=== PATIENT | male | born 1935 | race Caucasian/White ===

== ENCOUNTER 2021-01-25 11:25 | Inpatient (IN) ==
[2021-01-25 11:54] LABS: Basophils # 0.1 10*3/uL (0.0-0.2); Basophils % 0.8 % (0.0-0.8); Eosinophils # 0.1 10*3/uL (0.0-0.87); Eosinophils % 1.9 % (0.00-10.9); Hematocrit 44.6 VOL% (42.0-52.0); Immature Granulocytes % 0.3 %; Immature Granulocytes Absolute 0.02 #; Lymphocytes # 2.2 10*3/uL (1.4-4.0); Lymphocytes % 29.9 % (21.2-54.2); Mean Corpuscular HGB Conc 33.6 GM/DL (32-36); Mean Corpuscular Volume 90.3 FL (87-102); Mean Platelet Volume 10.8 FL (9.6-12.0); Monocytes % 7.6 % (1.7-12.7); Neutrophils % 59.5 % (38.7-73.9); Platelet Count 208 T/CUMM (130-400); Red Blood Count 4.94 MC/CUMM (3.8-5.5); Red Cell Distribution Width 12.9 % (9.3-17.3); White Blood Count 7.4 T/CUMM (4-12)
[2021-01-25] MEDS ORDERED: NITROGLYCERIN SL 0.4 MG TABLET SL PRN ×2 (12:01→16:05)
[2021-01-25] MEDS ORDERED: NITROGLYCERIN 2% OINT 1 INCH/GM PACK TOP STA (12:01)
[2021-01-25 12:30] LABS: Albumin 4.1 G/DL (3.4-5.0); Bilirubin,Total 1.2 MG/DL (0.2-1.0); Calcium 9.3 MG/DL (8.5-10.1); Osmolality,Calculated 279.4 MOS/KG (273-304); Potassium 4.5 MMOL/L (3.5-5.1); Total Protein 7.1 G/DL (6.4-8.2)
[2021-01-25] MEDS ORDERED: MAGNESIUM SULF RIDER 4 GM/100 ML PREMIX IV PRN (16:02)
[2021-01-25] MEDS ORDERED: MAGNESIUM SULF RIDER 2 GM/50 ML PREMIX IV PRN (16:02)
[2021-01-25] MEDS ORDERED: MORPHINE 4 MG/1 ML VIAL IV PRN (16:02)
[2021-01-25] MEDS ORDERED: ONDANSETRON 4 MG/2 ML VIAL IV PRN (16:02)
[2021-01-25] MEDS: SODIUM CHLORIDE 0.45% 1,000 ML IV SCH (17:30)
[2021-01-25] MEDS: ENOXAPARIN 40 MG/0.4 ML SYRINGE SUBCUT SCH (17:52)
[2021-01-25] MEDS: ROSUVASTATIN 10 MG TABLET PO SCH (21:59)
[2021-01-25] MEDS: MAGNESIUM OXIDE 400 MG TABLET PO SCH (22:00)
[2021-01-25] MEDS: metFORMIN 500 MG TABLET PO SCH (22:00)
[2021-01-25] MEDS: rOPINIRole 0.25 MG TABLET PO SCH (22:00)
[2021-01-25] MEDS: GABAPENTIN 100 MG CAPSULE PO SCH (22:00)
[2021-01-25] MEDS: TAMSULOSIN 0.4 MG CAPSULE PO SCH (22:00)
[2021-01-25] MEDS: BUDESONIDE/FORMOTEROL 80-4.5 INHALER 6.9 GM INH SCH (22:01)
[2021-01-25] MEDS: ACETAMINOPHEN 325 MG TABLET PO PRN (22:01)
[2021-01-26] MEDS: NITROGLYCERIN 2% OINT 1 INCH/GM PACK TOP SCH ×2 (06:04→09:47)
[2021-01-26] MEDS: ACETAMINOPHEN 325 MG TABLET PO PRN ×2 (06:31→15:46)
[2021-01-26] MEDS: SODIUM CHLORIDE 0.45% 1,000 ML IV SCH ×2 (06:31→15:37)
[2021-01-26] MEDS: BUDESONIDE/FORMOTEROL 80-4.5 INHALER 6.9 GM INH SCH ×2 (09:45→21:28)
[2021-01-26] MEDS: PRASUGREL 10 MG TABLET PO SCH (09:45)
[2021-01-26] MEDS: CALCIUM (CARBONATE)/VITAMIN D 600 MG-400 UNIT TABLET PO SCH (09:45)
[2021-01-26] MEDS: GABAPENTIN 100 MG CAPSULE PO SCH ×3 (09:46→21:28)
[2021-01-26] MEDS: ASCORBIC ACID 500 MG TABLET PO SCH (09:46)
[2021-01-26] MEDS: metFORMIN 500 MG TABLET PO SCH (09:46)
[2021-01-26] MEDS: rOPINIRole 0.25 MG TABLET PO SCH ×3 (09:46→21:28)
[2021-01-26] MEDS: MAGNESIUM OXIDE 400 MG TABLET PO SCH ×2 (09:46→21:28)
[2021-01-26] MEDS: LOSARTAN 25 MG TABLET PO SCH (09:46)
[2021-01-26] MEDS: PANTOPRAZOLE 40 MG TABLET PO SCH (09:46)
[2021-01-26] MEDS ORDERED: DEXTROSE 50% 25 GM/50 ML VIAL IV PRN (11:54)
[2021-01-26] MEDS ORDERED: GLUCAGON 1 MG VIAL IM PRN (11:54)
[2021-01-26] MEDS ORDERED: NITROGLYCERIN 2% OINT 1 INCH/GM PACK TOP SCH (12:00)
[2021-01-26] MEDS: ISOSORBIDE MONONITRATE 30 MG TABLET PO SCH (13:24)
[2021-01-26] MEDS: ASPIRIN EC 81 MG TABLET PO SCH (13:25)
[2021-01-26] MEDS: INSULIN REGULAR 100 UNIT/ML SUBCUT SCH ×4 (16:05→21:31)
[2021-01-26] MEDS: ENOXAPARIN 40 MG/0.4 ML SYRINGE SUBCUT SCH (17:01)
[2021-01-26] MEDS: TAMSULOSIN 0.4 MG CAPSULE PO SCH (21:28)
[2021-01-26] MEDS: ROSUVASTATIN 10 MG TABLET PO SCH (21:28)
[2021-01-27 06:25] LABS: Basophils # 0.1 10*3/uL (0.0-0.2); Basophils % 0.8 % (0.0-0.8); Eosinophils # 0.1 10*3/uL (0.0-0.87); Eosinophils % 1.9 % (0.00-10.9); Hematocrit 39.3 VOL% (42.0-52.0); Hemoglobin 12.6 GM/DL (14.0-18.0); Immature Granulocytes % 0.3 %; Immature Granulocytes Absolute 0.02 #; Lymphocytes # 1.6 10*3/uL (1.4-4.0); Lymphocytes % 25.2 % (21.2-54.2); Mean Corpuscular HGB Conc 32.1 GM/DL (32-36); Mean Corpuscular Volume 93.8 FL (87-102); Mean Platelet Volume 11.4 FL (9.6-12.0); Monocytes % 8.7 % (1.7-12.7); Neutrophils % 63.1 % (38.7-73.9); Platelet Count 147 T/CUMM (130-400); Red Blood Count 4.19 MC/CUMM (3.8-5.5); Red Cell Distribution Width 12.8 % (9.3-17.3); White Blood Count 6.2 T/CUMM (4-12)
[2021-01-27 06:47] LABS: Osmolality,Calculated 281.3 MOS/KG (273-304); Potassium 4.5 MMOL/L (3.5-5.1)
[2021-01-27] MEDS: INSULIN REGULAR 100 UNIT/ML SUBCUT SCH ×6 (07:39→15:40)
[2021-01-27] MEDS: BUDESONIDE/FORMOTEROL 80-4.5 INHALER 6.9 GM INH SCH ×2 (09:23→21:52)
[2021-01-27] MEDS: PANTOPRAZOLE 40 MG TABLET PO SCH (09:23)
[2021-01-27] MEDS: PRASUGREL 10 MG TABLET PO SCH (09:24)
[2021-01-27] MEDS: LOSARTAN 25 MG TABLET PO SCH (09:24)
[2021-01-27] MEDS: MAGNESIUM OXIDE 400 MG TABLET PO SCH ×2 (09:24→21:52)
[2021-01-27] MEDS: CALCIUM (CARBONATE)/VITAMIN D 600 MG-400 UNIT TABLET PO SCH (09:24)
[2021-01-27] MEDS: ASPIRIN EC 81 MG TABLET PO SCH (09:24)
[2021-01-27] MEDS: GABAPENTIN 100 MG CAPSULE PO SCH ×3 (09:24→21:52)
[2021-01-27] MEDS: ISOSORBIDE MONONITRATE 30 MG TABLET PO SCH (09:24)
[2021-01-27] MEDS: ASCORBIC ACID 500 MG TABLET PO SCH (09:24)
[2021-01-27] MEDS: rOPINIRole 0.25 MG TABLET PO SCH ×3 (09:25→21:52)
[2021-01-27] MEDS: ACETAMINOPHEN 325 MG TABLET PO PRN (12:21)
[2021-01-27] MEDS ORDERED: POTASSIUM CHLORIDE RIDER 10 MEQ in PREMIX 1 EACH IV PRN (15:47)
[2021-01-27] MEDS ORDERED: MAGNESIUM SULF RIDER 2 GM/50 ML PREMIX IV PRN (15:47)
[2021-01-27] MEDS: ENOXAPARIN 40 MG/0.4 ML SYRINGE SUBCUT SCH (17:10)
[2021-01-27] MEDS: TAMSULOSIN 0.4 MG CAPSULE PO SCH (21:52)
[2021-01-27] MEDS: ROSUVASTATIN 10 MG TABLET PO SCH (21:52)
[2021-01-28 05:15] LABS: Basophils % 0.7 % (0.0-0.8); Eosinophils # 0.1 10*3/uL (0.0-0.87); Eosinophils % 1.8 % (0.00-10.9); Hematocrit 38.1 VOL% (42.0-52.0); Hemoglobin 13.1 GM/DL (14.0-18.0); Immature Granulocytes % 0.3 %; Immature Granulocytes Absolute 0.02 #; Lymphocytes # 1.7 10*3/uL (1.4-4.0); Lymphocytes % 27.4 % (21.2-54.2); Mean Corpuscular HGB Conc 34.4 GM/DL (32-36); Mean Corpuscular Volume 89.4 FL (87-102); Mean Platelet Volume 11.6 FL (9.6-12.0); Monocytes % 10.1 % (1.7-12.7); Neutrophils % 59.7 % (38.7-73.9); Platelet Count 164 T/CUMM (130-400); Red Blood Count 4.26 MC/CUMM (3.8-5.5); Red Cell Distribution Width 12.6 % (9.3-17.3); White Blood Count 6.1 T/CUMM (4-12)
[2021-01-28] MEDS: INSULIN REGULAR 100 UNIT/ML SUBCUT SCH ×6 (05:22→12:39)
[2021-01-28 05:29] LABS: Calcium 8.9 MG/DL (8.5-10.1); Osmolality,Calculated 282.3 MOS/KG (273-304); Potassium 4.1 MMOL/L (3.5-5.1)
[2021-01-28 05:35] LABS: PT Patient Result 10.9 SECS (10.5-12.0)
[2021-01-28] MEDS: ASPIRIN EC 81 MG TABLET PO SCH (08:15)
[2021-01-28] MEDS: MAGNESIUM OXIDE 400 MG TABLET PO SCH (08:15)
[2021-01-28] MEDS: rOPINIRole 0.25 MG TABLET PO SCH (08:15)
[2021-01-28] MEDS: PANTOPRAZOLE 40 MG TABLET PO SCH (08:16)
[2021-01-28] MEDS: CALCIUM (CARBONATE)/VITAMIN D 600 MG-400 UNIT TABLET PO SCH (08:16)
[2021-01-28] MEDS: ASCORBIC ACID 500 MG TABLET PO SCH (08:16)
[2021-01-28] MEDS: ISOSORBIDE MONONITRATE 30 MG TABLET PO SCH (08:16)
[2021-01-28] MEDS: PRASUGREL 10 MG TABLET PO SCH (08:16)
[2021-01-28] MEDS: GABAPENTIN 100 MG CAPSULE PO SCH (08:17)
[2021-01-28] MEDS: BUDESONIDE/FORMOTEROL 80-4.5 INHALER 6.9 GM INH SCH (08:17)
[2021-01-28] MEDS: LOSARTAN 25 MG TABLET PO SCH (08:17)
[2021-01-28] MEDS ORDERED: DIAZEPAM 5 MG TABLET PO ONE (09:00)
[2021-01-28] MEDS ORDERED: diphenhydrAMINE CAP 50 MG CAPSULE PO ONE (09:00)
[2021-01-28 11:22] VITALS: BP 105/65
== END 2021-01-28 14:29 | disposition home or self-care (01) | DRG 313 ==
LOC: N.EDINP 11:25 → N.ED 11:25 → N.TELES 17:01
PROVIDERS: ADMIT Internal Medicine Interventional Cardiology; ATTEND Internal Medicine Interventional Cardiology